=== PATIENT | female | born 1945 | race Caucasian/White ===

== ENCOUNTER 2016-12-02 21:28 | Emergency (ER) | payer MEDICARE, BC ==
[2016-12-02] MEDS ORDERED: traMADol 50 MG Tab ONE (21:40)
[2016-12-02 22:36] VITALS: BP 148/79
--- NOTE | 2016-12-03 09:33 | EDM.PDOC ---
ED HPI GENERAL MEDICAL PROBLEM - General Chief Complaint: General Stated Complaint: fall Time Seen by Provider: 12/02/16 21:45 - History of Present Illness INITIAL COMMENTS - FREE TEXT/NARRATIVE: This is a 71yo F who presents to the ER with an abrasion of the right knee and pain of the left groin and thigh. Patient states she fell and hit her right knee and felt pain of the left groin and thigh after she thinks she almost did the splits. Patient denies other complaints. 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 - Related Data Allergies Allergy/AdvReac Type Severity Reaction Status Date / Time amoxicillin Allergy Hives Verified 08/02/15 10:19 Home Meds: Home Meds Lisinopril [Lisinopril] 5 mg PO DAILY 08/02/15 [History] Omeprazole [Omeprazole] 20 mg PO DAILY 08/02/15 [History] Simvastatin [Simvastatin] 60 mg PO DAILY 08/02/15 [History] clonazePAM [Clonazepam] 0.5 mg PO TID PRN 08/02/15 [History] Aspirin 325 mg PO DAILY 12/02/16 [History] Budesonide/Formoterol [Symbicort 160-4.5 MCG] 1 puff INH BID 12/02/16 [History] Past Medical History HEENT History: Reports: Cataract Cardiovascular History: Reports: High Cholesterol, Hypertension Respiratory History: Reports: Bronchitis, Recurrent Musculoskeletal History: Reports: Other (See Below) Other Musculoskeletal History: rediculpathy Neurological History: Reports: Concussion Psychiatric History: Reports: Anxiety, Depression Endocrine/Metabolic History: Reports: Obesity/BMI 30+ Dermatologic History: Reports: Other (See Below) Other Dermatologic History: Skin rash to chest area - Infectious Disease History Infectious Disease History: Reports: Chicken Pox, Measles, Rubella, Shingles - Past Surgical History HEENT Surgical History: Reports: Radiocarotid Ectomy GI Surgical History: Reports: Appendectomy Social & Family History - Tobacco Use Smoking Status *Q: Current Every Day Smoker Years of Tobacco use: 30 Packs/Tins Daily: 1 Second Hand Smoke Exposure: No ED ROS GENERAL - Review of Systems Review Of Systems: ROS reveals no pertinent complaints other than HPI. ED EXAM, GENERAL - Physical Exam Exam: See Below Exam Limited By: No Limitations General Appearance: Alert, WD/WN, Mild Distress Eye Exam: Bilateral Eye: EOMI, PERRL Ears: Normal External Exam Nose: Normal Inspection Throat/Mouth: Normal Inspection Head: Atraumatic, Normocephalic Neck: Normal Inspection Respiratory/Chest: No Respiratory Distress Cardiovascular: Normal Peripheral Pulses GI/Abdominal: Normal Bowel Sounds Extremities: Other (right knee anterior bruising and abrasion; left inner thigh and posterior thigh tenderness on movement) Course - Vital Signs Last Recorded V/S: Last Vital Signs Temp 36.9 C 12/02/16 21:35 Pulse 107 H 12/02/16 21:35 Resp 12 12/02/16 21:35 BP 148/79 H 12/02/16 21:35 Pulse Ox 98 12/02/16 21:35 - Orders/Labs/Meds Meds: Medications Discontinued Medications Generic Name Dose Route Start Last Admin Trade Name Freq PRN Reason Stop Dose Admin Tramadol HCl 500 mg 12/02/16 21:40 Ultram .ROUTE 12/02/16 21:41 .STK-MED ONE Departure - Departure Time of Disposition: 22:15 Disposition: Home, Self-Care 01 Clinical Impression: Strain of groin, Quadriceps muscle strain - Discharge Information Instructions: Fall Prevention in the Home, [id number], Tramadol tablets, Muscle Strain Forms: ED Department Discharge Additional Instructions: Take Ibproufen 800mg (4 tabs) every 8 hours as needed for pain. You can alternate with tylenol 2 tabs - 650 mg (2 tabs) every 4 hours. Take tramadol 50 mg (1 tablet) at night or when needed for pain. - Problem List & Annotations (1) Strain of left inguinal muscle SNOMED Code(s): 79573047, 280600938 Code(s): S39.013A - STRAIN OF MUSCLE, FASCIA AND TENDON OF PELVIS, INIT ENCNTR Status: Acute (2) Quadriceps muscle strain SNOMED Code(s): 416396318 Code(s): S76.119A - STRAIN OF UNSP QUADRICEPS MUSCLE, FASCIA AND TENDON, INIT Status: Acute - Problem List Review Problem List Initiated/Reviewed/Updated: Yes - Assessment/Plan Plan: Counseled on supportive care and conservative care and f/u with PCP if symptoms persist or worsen. Discussed close monitoring and f/u. Patient agrees with plan and f/u.
== END 2016-12-02 22:05 | disposition home or self-care (01) ==
LOC: LB.ED 21:28
DX: S76.112A Strain of left quadriceps muscle, fascia and tendon, initial encounter (principal); S39.011A Strain of muscle, fascia and tendon of abdomen, initial encounter; S80.01XA Contusion of right knee, initial encounter; E78.00 Pure hypercholesterolemia, unspecified; I10 Essential (primary) hypertension; F41.9 Anxiety disorder, unspecified; F32.9 Major depressive disorder, single episode, unspecified; E66.9 Obesity, unspecified; F17.210 Nicotine dependence, cigarettes, uncomplicated; Z90.49 Acquired absence of other specified parts of digestive tract; Z88.1 Allergy status to other antibiotic agents; Z79.899 Other long term (current) drug therapy; Z79.82 Long term (current) use of aspirin; W19.XXXA Unspecified fall, initial encounter
CPT/HCPCS: 99283; A9270

== ENCOUNTER 2018-07-06 10:40 | Observation (INO) | payer MEDICARE ==
--- NOTE | 2018-07-06 11:21 | EDM.PDOC ---
ED HPI GENERAL MEDICAL PROBLEM - General Stated Complaint: SOB Time Seen by Provider: 07/06/18 10:45 Source of Information: Reports: Patient, EMS History Limitations: Reports: No Limitations - History of Present Illness INITIAL COMMENTS - FREE TEXT/NARRATIVE: According to patient she claims she claims she just came back from [place] few days ago. For past 3 days has been having low grade fever and shortness of breath with exertion. Today she woke up and felt like she was not getting enough oxygen and soon felt shortness of breath.Hence called ambulance. No chest pain or chest tightness. Pt claims she has been coughing and getting sputum. Sputum is clear. No wheezing. No hemoptysis. Duration: Day(s): (3) Location: Reports: Chest Quality: Reports: Other (cough) Severity: Moderate Associated Symptoms: Reports: Cough, Fever/Chills, Shortness of Breath. Denies : Confusion, Chest Pain, Diaphoresis, Headaches, Loss of Appetite, Nausea/ Vomiting, Rash, Seizure, Syncope, Weakness - Related Data Allergies Allergy/AdvReac Type Severity Reaction Status Date / Time amoxicillin Allergy Hives Verified 08/02/15 10:19 Home Meds: Home Meds Lisinopril 5 mg PO DAILY 08/02/15 [History] Omeprazole 20 mg PO DAILY 08/02/15 [History] Simvastatin 60 mg PO DAILY 08/02/15 [History] clonazePAM [Clonazepam] 0.5 mg PO TID PRN 08/02/15 [History] Aspirin 325 mg PO DAILY 12/02/16 [History] Budesonide/Formoterol [Symbicort 160-4.5 MCG] 1 puff INH BID 12/02/16 [History] Past Medical History HEENT History: Reports: Cataract Cardiovascular History: Reports: High Cholesterol, Hypertension Respiratory History: Reports: Bronchitis, Recurrent Musculoskeletal History: Reports: Other (See Below) Other Musculoskeletal History: rediculpathy Neurological History: Reports: Concussion Psychiatric History: Reports: Anxiety, Depression Endocrine/Metabolic History: Reports: Obesity/BMI 30+ Dermatologic History: Reports: Other (See Below) Other Dermatologic History: Skin rash to chest area - Infectious Disease History Infectious Disease History: Reports: Chicken Pox, Measles, Rubella, Shingles - Past Surgical History HEENT Surgical History: Reports: Radiocarotid Ectomy GI Surgical History: Reports: Appendectomy ED ROS GENERAL - Review of Systems Review Of Systems: See Below Constitutional: Reports: Fever, Chills HEENT: Denies: Rhinitis, Throat Pain, Throat Swelling Respiratory: Reports: Shortness of Breath, Cough, Sputum. Denies: Wheezing, Pleuritic Chest Pain Cardiovascular: Denies: Chest Pain, Lightheadedness GI/Abdominal: Denies: Abdominal Pain, Nausea, Vomiting : Denies: Dysuria, Frequency Musculoskeletal: Denies: Joint Pain, Joint Swelling Skin: Denies: Bruising, Pruritis, Rash Neurological: Reports: No Symptoms Psychiatric: Reports: Anxiety ED EXAM, GENERAL - Physical Exam Exam: See Below Exam Limited By: No Limitations General Appearance: Alert, WD/WN, No Apparent Distress, Other (Temp of 100.4F) Eye Exam: Bilateral Eye: EOMI, PERRL Ears: Normal External Exam, Normal Canal, Hearing Grossly Normal, Normal TMs Ear Exam: Bilateral Ear: Auricle Normal, Canal Normal, TM normal Nose: Normal Inspection, Normal Mucosa, No Blood Throat/Mouth: Normal Inspection, Normal Lips, Normal Teeth, Normal Gums, Normal Oropharynx, Normal Voice, No Airway Compromise Head: Atraumatic, Normocephalic Neck: Normal Inspection, Supple, Non-Tender, Full Range of Motion Respiratory/Chest: No Respiratory Distress, Lungs Clear, No Accessory Muscle Use , Chest Non-Tender, Decreased Breath Sounds (right base), Crackles (right base expiratory crackles heard) Cardiovascular: Normal Peripheral Pulses, Regular Rate, Rhythm, No Edema, No Gallop, No JVD, No Murmur, No Rub Course - Vital Signs Text/Narrative:: Pt was on NC O2 and has been maintaining her SPO2 above 94%. Pt does not appear in any acute respiratory distress. Breathing around 15-18 breaths. Anxious. On clinical exam there is good air entry anteriorly but decreased in the base. There are few crackles heard in the right lower lobe. Pt has been on Azithromycin, which was started yesterday in the clinic with the diagnosis of Asthma exacerbation. Her white count today is 7.9 with 74% neutrophils. Her Chest X-ray does show infiltrate in the right lower lobe. Her Influenza test is positive for influenza A. Pt's SPO2 on 3 liters of Oxygen is around 93-94%. I did slowly tartrate oxygen down to zero liters and patient's SPO2 did fall into 87-88%. Pt is not able to maintains her O2 Sats on room air. Hence I did discuss with patient that she has influenza with possible right lower lobe pneumonia, considering the crackles heard in right base. Chest Xray is negative per radiology. Will admit patient to hospital for observation as she is hypoxic and needs oxygen to maintain her SPO2. Will have her on Duonebs every 6 hrs as needed. Will have her on O2 to maintain SPO2 above 92 %. Incentive spirometer to expands lungs.Start her on Tamiflu. - Orders/Labs/Meds Orders: Active Orders 24 hr Category Date Time Status Chest 2V [CR] Stat Exams 07/06/18 11:08 Taken INFLUENZA A+B AG SCREEN [RM] Stat Lab 07/06/18 11:15 Received Labs: Laboratory Tests 07/06/18 Range/Units 11:15 WBC 7.9 (4.0-11.0) K/uL RBC 4.49 (3.80-5.80) M/uL Hgb 13.4 (11.5-16.5) g/dL Hct 40.4 (37.0-47.0) % MCV 90 (76-96) fL MCH 29.8 (27.0-32.0) pg MCHC 33.2 (31.0-35.0) g/dL RDW 13.3 (11.0-16.0) % Plt Count 190 D (150-500) K/uL MPV 9.9 (6.0-10.0) fL Neut % (Auto) 73.4 H (45.0-70.0) % Lymph % (Auto) 13.4 L (20.0-40.0) % [place] % (Auto) 10.9 H (3.0-10.0) % Eos % (Auto) 1.4 (1.0-5.0) % Baso % (Auto) 0.9 H (0.0-0.5) % Neut # (Auto) 5.77 (2.00-7.50) K/uL Lymph # (Auto) 1.05 L (1.50-4.00) K/uL [place] # (Auto) 0.86 H (0.20-0.80) K/uL Eos # (Auto) 0.11 (0.04-0.40) K/uL Baso # (Auto) 0.07 (0.02-0.10) K/uL Departure - Departure Time of Disposition: 12:00 Disposition: Refer to Observation Condition: Fair Clinical Impression: Influenza A, Right lower lobe pneumonia, Hypoxia - Discharge Information *PRESCRIPTION DRUG MONITORING PROGRAM REVIEWED*: Not Applicable *COPY OF PRESCRIPTION DRUG MONITORING REPORT IN PATIENT BOBO: Not Applicable - Problem List & Annotations (1) Hypoxia SNOMED Code(s): 369558521 Code(s): R09.02 - HYPOXEMIA Status: Acute Current Visit: Yes (2) Influenza A SNOMED Code(s): 268089201 Code(s): J10.1 - FLU DUE TO OTH IDENT INFLUENZA VIRUS W OTH RESP MANIFEST Status: Acute Current Visit: Yes (3) Right lower lobe pneumonia SNOMED Code(s): 604086098 Code(s): J18.1 - LOBAR PNEUMONIA, UNSPECIFIED ORGANISM Status: Acute Current Visit: Yes - Problem List Review Problem List Initiated/Reviewed/Updated: Yes - My Orders Last 24 Hours: My Active Orders 07/06/18 11:08 Chest 2V [CR] Stat 07/06/18 11:15 INFLUENZA A+B AG SCREEN [RM] Stat - Assessment/Plan Admission H&P: Please use this note as an admission H&P Last 24 Hours: My Active Orders 07/06/18 11:08 Chest 2V [CR] Stat 07/06/18 11:15 INFLUENZA A+B AG SCREEN [RM] Stat Assessment:: Hypoxia Influenza A Right LL pneumonia Plan: Pt was on NC O2 and has been maintaining her SPO2 above 94%. Pt does not appear in any acute respiratory distress. Breathing around 15-18 breaths. Anxious. On clinical exam there is good air entry anteriorly but decreased in the base. There are few crackles heard in the right lower lobe. Pt has been on Azithromycin, which was started yesterday in the clinic with the diagnosis of Asthma exacerbation. Her white count today is 7.9 with 74% neutrophils. Her Chest X-ray does show infiltrate in the right lower lobe. Her Influenza test is positive for influenza A. Pt's SPO2 on 3 liters of Oxygen is around 93-94%. I did slowly tartrate oxygen down to zero liters and patient's SPO2 did fall into 87-88%. Pt is not able to maintains her O2 Sats on room air. Hence I did discuss with patient that she has influenza with possible right lower lobe pneumonia, considering the crackles heard in right base. Chest Xray is negative per radiology. Will admit patient to hospital for observation as she is hypoxic and needs oxygen to maintain her SPO2. Will have her on Duonebs every 6 hrs as needed. Will have her on O2 to maintain SPO2 above 92 %. Incentive spirometer to expands lungs.Start her on Tamiflu.
[2018-07-06] MEDS ORDERED: Sodium Chloride 0.9% 10 ML Syringe FLUSH PRN (12:01)
[2018-07-06] MEDS ORDERED: Acetaminophen 325 MG Tab PO PRN (12:05)
[2018-07-06] MEDS ORDERED: Albuterol/Ipratropium 3.0-0.5 MG/3 ML Neb Soln NEB PRN (12:06)
--- NOTE | 2018-07-06 12:08 | CR ---
DATE OF EXAM: 07/06/2018 CLINICAL DATA: FEVER WITH COUGH PA and lateral chest: Comparison made to prior exam dated 07/15/2017. The heart size is normal. The lungs are mildly hyperexpanded. There is a nodular density in the right midlung on the frontal view. It is not present on the prior exam. I do not see it on the lateral view. It may be confluence of densities. I cannot exclude a small pulmonary parenchymal nodule. Chest CT is recommended. The lungs are otherwise clear. No pneumothorax. No pleural effusions. No areas of consolidation. 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 There is anterior wedging of a lower thoracic vertebra, chronic. Impression: Nodular density right midlung. See above. MTDD
[2018-07-06] MEDS ORDERED: Ibuprofen 600 MG Tab PO ONE (13:30)
[2018-07-06] MEDS: BUDESONIDE INH SCH ×2 (14:05→19:43)
[2018-07-06] MEDS: FORMOTEROL INH SCH ×2 (14:05→19:43)
[2018-07-06] MEDS: Omeprazole 20 MG Cap.CR PO SCH (14:07)
[2018-07-06] MEDS: Simvastatin 20 MG Tab PO SCH (14:09)
[2018-07-06] MEDS: Azithromycin 250 MG Tab PO SCH (14:10)
[2018-07-06] MEDS ORDERED: Aspirin 325 MG Tab.EC ONE (15:02)
[2018-07-06] MEDS: Non-Formulary Medication 1 Each (Aspirin [Aspirin] 325 MG) PO SCH (15:03)
[2018-07-06] MEDS: Oseltamivir 75 MG Cap PO SCH ×2 (15:03→19:41)
[2018-07-06] MEDS: ClonazePAM 0.5 MG Tab PO SCH ×2 (15:13→19:42)
[2018-07-06] MEDS: Lisinopril 5 MG Tab PO SCH (15:30)
[2018-07-06] MEDS ORDERED: Nicotine 7 MG/24 Hr Patch TRDERM PRN (16:56)
[2018-07-06] MEDS: Codeine/guaiFENesin 100-10 MG/5 ML Syrup 5 ML Cup ONE ×2 (19:17→19:41)
[2018-07-07] MEDS: FORMOTEROL INH SCH ×3 (01:28→20:22)
[2018-07-07] MEDS: BUDESONIDE INH SCH ×3 (01:28→20:22)
[2018-07-07] MEDS: Non-Formulary Medication 1 Each (Aspirin [Aspirin] 325 MG) PO SCH (07:51)
[2018-07-07] MEDS: Omeprazole 20 MG Cap.CR PO SCH (07:52)
[2018-07-07] MEDS: Lisinopril 5 MG Tab PO SCH (07:52)
[2018-07-07] MEDS: Azithromycin 250 MG Tab PO SCH (07:53)
[2018-07-07] MEDS: Oseltamivir 75 MG Cap PO SCH ×2 (07:54→20:22)
[2018-07-07] MEDS: ClonazePAM 0.5 MG Tab PO SCH ×3 (07:54→20:22)
[2018-07-07] MEDS: Simvastatin 20 MG Tab PO SCH (11:25)
[2018-07-07] MEDS ORDERED: Ibuprofen 600 MG Tab PO PRN (12:15)
[2018-07-07] MEDS ORDERED: Ibuprofen 200 MG Tab PO PRN (12:57)
[2018-07-07] MEDS: guaiFENesin 600 MG Tab.ER PO SCH (17:27)
[2018-07-07] MEDS ORDERED: Simvastatin 20 MG Tab PO SCH (20:00)
[2018-07-08] MEDS: Oseltamivir 75 MG Cap PO SCH ×2 (08:41→09:34)
[2018-07-08] MEDS: ClonazePAM 0.5 MG Tab PO SCH ×2 (08:41→09:34)
[2018-07-08] MEDS: Azithromycin 250 MG Tab PO SCH ×2 (08:41→09:34)
[2018-07-08] MEDS: Omeprazole 20 MG Cap.CR PO SCH ×2 (08:42→09:34)
[2018-07-08] MEDS: FORMOTEROL INH SCH ×2 (08:42→09:34)
[2018-07-08] MEDS: BUDESONIDE INH SCH ×2 (08:42→09:34)
[2018-07-08] MEDS: Lisinopril 5 MG Tab PO SCH ×2 (08:42→09:34)
[2018-07-08] MEDS: Non-Formulary Medication 1 Each (Aspirin [Aspirin] 325 MG) PO SCH ×2 (08:46→09:34)
[2018-07-08] MEDS ORDERED: Aspirin 325 MG Tab.EC ONE (08:46)
[2018-07-08] MEDS: guaiFENesin 600 MG Tab.ER PO SCH ×2 (08:47→09:34)
--- NOTE | 2018-07-08 09:11 | PCM.PN ---
- General Info Date of Service: 07/07/18 Subjective Update: Pt has had uneventful night. Has had low grade fever. Pt is still on 2 litres of oxygen to maintain her SPO2s been coughing on and off getting clear sputum. No chest pain. No shortness of breath or wheezing. HAs been feeding well. Ambulating. Functional Status: Reports: Pain Controlled, Tolerating Diet, Ambulating, Urinating, Incentive Spirometry - Review of Systems General: Reports: Fever, Weakness HEENT: Reports: Rhinitis. Denies: Headaches, Sore Throat Pulmonary: Reports: Cough, Sputum. Denies: Shortness of Breath, Hemoptysis, Wheezing Cardiovascular: Denies: Chest Pain, Lightheadedness Gastrointestinal: Denies: Abdominal Pain, Nausea, Vomiting Genitourinary: Denies: Dysuria, Frequency Musculoskeletal: Denies: Joint Pain, Joint Swelling Skin: Denies: Bruising, Pruritis, Rash Neurological: Denies: Confusion, Dizziness - Patient Data Vitals - Most Recent: Last Vital Signs Temp 99.1 F 07/07/18 20:00 Pulse 77 07/07/18 20:00 Resp 20 07/07/18 20:00 BP 106/50 L 07/07/18 20:00 Pulse Ox 97 07/07/18 20:00 Weight - Most Recent: 90.265 kg I&O - Last 24 Hours: Intake & Output 07/07/18 07/08/18 07/08/18 22:59 06:59 14:59 Intake Total 1680 Output Total 900 Balance 780 Mc Results Last 24 Hours: Microbiology 07/06/18 12:21 Aerobic Blood Culture - Preliminary Blood - Venous NO GROWTH AFTER 1 DAY Anaerobic Blood Culture - Preliminary NO GROWTH AFTER 1 DAY Med Orders - Current: Current Medications Acetaminophen (Tylenol) 650 mg PO Q6H PRN PRN Reason: Fever Last Admin: 07/07/18 01:21 Dose: 650 mg Albuterol/Ipratropium (Duoneb 3.0-0.5 Mg/3 Ml) 3 ml NEB Q6H PRN PRN Reason: Wheezing Last Admin: 07/07/18 11:25 Dose: 3 ml Azithromycin (Zithromax) 250 mg PO DAILY [facility] Last Admin: 07/07/18 07:53 Dose: 250 mg Clonazepam (Klonopin) 0.5 mg PO TID [facility] Last Admin: 07/07/18 20:22 Dose: 0.5 mg Guaifenesin (Mucinex) 1,200 mg PO BID [facility] Last Admin: 07/07/18 17:27 Dose: 1,200 mg Ibuprofen (Motrin) 600 mg PO Q8H PRN PRN Reason: MILD PAIN Last Admin: 07/08/18 07:03 Dose: 600 mg Lisinopril (Prinivil) 5 mg PO DAILY [facility] Last Admin: 07/07/18 07:52 Dose: 5 mg Nicotine (Habitrol) 7 mg TRDERM DAILY PRN PRN Reason: Agitation Non-Formulary Medication (Aspirin [Aspirin]) 325 mg PO DAILY [facility] Last Admin: 07/07/18 07:51 Dose: 325 mg Non-Formulary Medication (Budesonide/Formoterol [Symbicort 160-4.5 Mcg]) 1 puff INH BID [facility] Last Admin: 07/07/18 20:22 Dose: 1 puff Omeprazole (Omeprazole) 20 mg PO DAILY [facility] Last Admin: 07/07/18 07:52 Dose: 20 mg Oseltamivir Phosphate (Tamiflu) 75 mg PO BID [facility] Last Admin: 07/07/18 20:22 Dose: 75 mg Simvastatin (Zocor) 60 mg PO BEDTIME [facility] Last Admin: 07/07/18 20:22 Dose: 60 mg Sodium Chloride (Saline Flush) 10 ml FLUSH ASDIRECTED PRN PRN Reason: Keep Vein Open Discontinued Medications Aspirin (Ecotrin) Confirm Administered Dose 325 mg .ROUTE .STK-MED ONE Stop: 07/06/18 15:03 Last Admin: 07/06/18 15:18 Dose: Not Given Aspirin (Ecotrin) Confirm Administered Dose 325 mg .ROUTE .STK-MED ONE Stop: 07/08/18 08:47 Guaifenesin/Codeine Phosphate (Robitussin Ac) Confirm Administered Dose 5 ml .ROUTE .STK-MED ONE Stop: 07/06/18 19:18 Last Admin: 07/06/18 19:41 Dose: 5 ml Ibuprofen (Motrin) 600 mg PO ONETIME ONE Stop: 07/06/18 13:31 Last Admin: 07/06/18 13:23 Dose: 600 mg Simvastatin (Zocor) 60 mg PO DAILY [facility] Last Admin: 07/07/18 11:25 Dose: Not Given - Exam Quality Assessment: Supplemental Oxygen General: Alert, Oriented, Cooperative HEENT: Pupils Equal, Pupils Reactive, EOMI, Mucous Membr. Moist/[place] Neck: Supple Lungs: Clear to Auscultation, Normal Respiratory Effort Cardiovascular: Regular Rate, Regular Rhythm GI/Abdominal Exam: Normal Bowel Sounds, Soft, Non-Tender, No Organomegaly, No Distention, No Abnormal Bruit, No Mass, Pelvis Stable Extremities: Normal Inspection, Normal Range of Motion, Non-Tender, No Pedal Edema, Normal Capillary Refill Skin: Warm, Intact - Problem List & Annotations (1) Hypoxia SNOMED Code(s): 033431825 Code(s): R09.02 - HYPOXEMIA Status: Acute Current Visit: Yes (2) Influenza A SNOMED Code(s): 949328374 Code(s): J10.1 - FLU DUE TO OTH IDENT INFLUENZA VIRUS W OTH RESP MANIFEST Status: Acute Current Visit: Yes (3) Right lower lobe pneumonia SNOMED Code(s): 837850105 Code(s): J18.1 - LOBAR PNEUMONIA, UNSPECIFIED ORGANISM Status: Acute Current Visit: Yes - Problem List Review Problem List Initiated/Reviewed/Updated: Yes - My Orders Last 24 Hours: My Active Orders 07/07/18 12:57 Ibuprofen [Motrin] 600 mg PO Q8H PRN 07/07/18 17:15 guaiFENesin [Mucinex] 1,200 mg PO BID 07/07/18 20:00 Simvastatin [Zocor] 60 mg PO BEDTIME - Assessment Assessment:: 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 She is on 2 liters of oxygen. Has been doing incentive spirometer upto 2000cc. Still has cough with minimal productive clear sputum. Tolerating diet well. Will encourage patient to ambulates. Continue deep breathing exercises. Will titrate oxygen downwards to keep the SPO2 over 92%. Will see if she can get off oxygen. Some of the hypoxia might be related to her mild COPD form smoking too. Will continue tamiflu and home meds.
--- NOTE | 2018-07-08 09:21 | PCM.DCSUM1 ---
Discharge Summary - Hospital Course Free Text/Narrative:: Pt presented to the emergency room on 07/06/18 with shortness of breath and fever. her SPO2 was 87% on room air. Her workup in the emergency room showed positive influenza-A and also crackles in the right base, consistent with early right LL pneumonia with hypoxia. Did try to titrate her oxygen in the emergency room, and her SPO2 would drop into 80s, hence patient was admitted to hospital for observation, to treat her Influenza and monitor her hypoxia. Pt has smoked since she was in her teens and just stopped smoking yesterday. Pt was started on tamiflu 75mg twice daily, also she was on ZPAk, from the clinic before, which was continued.Pt was placed on respiratory isolation. Day1, patient was feeling fine. Had low grade fever. tolerating diet well. She was still on 2litres of oxygen and her SPO2 was running around 93-95 %, had mild cough with clear sputum. No wheezing or shortness of breath. Pt was able to expand her lung on incentive spirometry up to 2000cc.Plan was to stat titrating the oxygen down to see if she can maintain PSo2 above 97%. Day2, patient has had uneventful night. Has been afebrile. Tolerating diet well. cough has improved. Pt's SPO2 is 97% on room air now. No complaints from patient. Clinical exam is normal and vitals are stable. Pt reassured. Plan is to discharge home today. Continue tamiflu for another 3 days. and azithromyicn for one more day. Deep breathing exercises with incentive spirometer every 3-4 hrs. Cough and clear up the airway. Mucinex as needed for cough. continue home meds. rest and hydration. Pt to followup in clinic in 7-10 days. Brief History: Presented to emergency room with shortness of breath on 07/06/18, pt had influenza A with hypoxia. Kindly see H&P for details. Diagnosis: Stroke: No - Discharge Data Discharge Date: 07/08/18 Discharge Disposition: Home, Self-Care 01 Condition: Good - Discharge Diagnosis/Problem(s) (1) Hypoxia SNOMED Code(s): 585025536 ICD Code: R09.02 - HYPOXEMIA Status: Acute Current Visit: Yes (2) Influenza A SNOMED Code(s): 261151084 ICD Code: J10.1 - FLU DUE TO OTH IDENT INFLUENZA VIRUS W OTH RESP MANIFEST Status: Acute Current Visit: Yes (3) Right lower lobe pneumonia SNOMED Code(s): 255456872 ICD Code: J18.1 - LOBAR PNEUMONIA, UNSPECIFIED ORGANISM Status: Acute Current Visit: Yes - Patient Instructions Diet: Usual Diet as Tolerated Fluid Restriction: 1500 mL Activity: As Tolerated Driving: May Drive Today Showering/Bathing: May Shower - Discharge Plan *PRESCRIPTION DRUG MONITORING PROGRAM REVIEWED*: Not Applicable *COPY OF PRESCRIPTION DRUG MONITORING REPORT IN PATIENT BOBO: Not Applicable Home Medications: Home Meds Lisinopril 5 mg PO DAILY 08/02/15 [History] Omeprazole 20 mg PO DAILY 08/02/15 [History] Simvastatin 60 mg PO DAILY 08/02/15 [History] clonazePAM [Clonazepam] 0.5 mg PO TID PRN 08/02/15 [History] Aspirin 325 mg PO DAILY 12/02/16 [History] Budesonide/Formoterol [Symbicort 160-4.5 MCG] 1 puff INH BID 12/02/16 [History] Acetaminophen [Tylenol] 650 mg PO Q6H PRN tablet 07/08/18 [Rx] Azithromycin [Zithromax] 250 mg PO DAILY tablet 07/08/18 [Rx] Oseltamivir [Tamiflu] 75 mg PO BID cap 07/08/18 [Rx] guaiFENesin [Mucinex] 1,200 mg PO BID tab.er 07/08/18 [Rx] Patient Handouts: Influenza, Adult, Oseltamivir capsules, Community-Acquired Pneumonia, Adult, [id number] Referrals: PCP,Unknown [Ordering Only Provider] - - Discharge Summary/Plan Comment DC Time >30 min.: Yes Discharge Summary/Plan Comment: Plan is to discharge home today. Continue tamiflu for another 3 days. and azithromyicn for one more day. Deep breathing exercises with incentive spirometer every 3-4 hrs. Cough and clear up the airway. Mucinex as needed for cough. continue home meds. rest and hydration. Pt's health care law specialist (Joan boston) was sent a script for Tamiflu 75mg daily for 10 days for influenza prophylaxis Pt to followup in clinic in 7-10 days. - General Info Date of Service: 07/08/18 Functional Status: Reports: Pain Controlled, Tolerating Diet, Ambulating, Urinating, Incentive Spirometry - Review of Systems General: Denies: Fever, Weakness HEENT: Denies: Headaches, Sinus Congestion, Sore Throat, Rhinitis Pulmonary: Denies: Shortness of Breath, Pleuritic Chest Pain, Sputum, Hemoptysis Cardiovascular: Denies: Chest Pain, Lightheadedness Gastrointestinal: Denies: Abdominal Pain, Nausea, Vomiting Genitourinary: Denies: Frequency Musculoskeletal: Denies: Joint Pain, Joint Swelling Skin: Denies: Bruising, Pruritis, Rash Neurological: Denies: Confusion, Dizziness, Headache - Patient Data Vitals - Most Recent: Last Vital Signs Temp 99.1 F 07/07/18 20:00 Pulse 77 07/07/18 20:00 Resp 20 07/07/18 20:00 BP 106/50 L 07/07/18 20:00 Pulse Ox 97 07/07/18 20:00 Weight - Most Recent: 90.265 kg I&O - Last 24 hours: Intake & Output 07/07/18 07/08/18 07/08/18 22:59 06:59 14:59 Intake Total 1680 Output Total 900 Balance 780 MARY Results - Last 24 hrs: Microbiology 07/06/18 12:21 Aerobic Blood Culture - Preliminary Blood - Venous NO GROWTH AFTER 1 DAY Anaerobic Blood Culture - Preliminary NO GROWTH AFTER 1 DAY Med Orders - Current: Current Medications Acetaminophen (Tylenol) 650 mg PO Q6H PRN PRN Reason: Fever Last Admin: 07/07/18 01:21 Dose: 650 mg Albuterol/Ipratropium (Duoneb 3.0-0.5 Mg/3 Ml) 3 ml NEB Q6H PRN PRN Reason: Wheezing Last Admin: 07/07/18 11:25 Dose: 3 ml Azithromycin (Zithromax) 250 mg PO DAILY [facility] Last Admin: 07/07/18 07:53 Dose: 250 mg Clonazepam (Klonopin) 0.5 mg PO TID [facility] Last Admin: 07/07/18 20:22 Dose: 0.5 mg Guaifenesin (Mucinex) 1,200 mg PO BID [facility] Last Admin: 07/07/18 17:27 Dose: 1,200 mg Ibuprofen (Motrin) 600 mg PO Q8H PRN PRN Reason: MILD PAIN Last Admin: 07/08/18 07:03 Dose: 600 mg Lisinopril (Prinivil) 5 mg PO DAILY [facility] Last Admin: 07/07/18 07:52 Dose: 5 mg Nicotine (Habitrol) 7 mg TRDERM DAILY PRN PRN Reason: Agitation Non-Formulary Medication (Aspirin [Aspirin]) 325 mg PO DAILY [facility] Last Admin: 07/07/18 07:51 Dose: 325 mg Non-Formulary Medication (Budesonide/Formoterol [Symbicort 160-4.5 Mcg]) 1 puff INH BID [facility] Last Admin: 07/07/18 20:22 Dose: 1 puff Omeprazole (Omeprazole) 20 mg PO DAILY [facility] Last Admin: 07/07/18 07:52 Dose: 20 mg Oseltamivir Phosphate (Tamiflu) 75 mg PO BID [facility] Last Admin: 07/07/18 20:22 Dose: 75 mg Simvastatin (Zocor) 60 mg PO BEDTIME [facility] Last Admin: 07/07/18 20:22 Dose: 60 mg Sodium Chloride (Saline Flush) 10 ml FLUSH ASDIRECTED PRN PRN Reason: Keep Vein Open Discontinued Medications Aspirin (Ecotrin) Confirm Administered Dose 325 mg .ROUTE .STK-MED ONE Stop: 07/06/18 15:03 Last Admin: 07/06/18 15:18 Dose: Not Given Aspirin (Ecotrin) Confirm Administered Dose 325 mg .ROUTE .STK-MED ONE Stop: 07/08/18 08:47 Guaifenesin/Codeine Phosphate (Robitussin Ac) Confirm Administered Dose 5 ml .ROUTE .STK-MED ONE Stop: 07/06/18 19:18 Last Admin: 07/06/18 19:41 Dose: 5 ml Ibuprofen (Motrin) 600 mg PO ONETIME ONE Stop: 07/06/18 13:31 Last Admin: 07/06/18 13:23 Dose: 600 mg Simvastatin (Zocor) 60 mg PO DAILY [facility] Last Admin: 07/07/18 11:25 Dose: Not Given - Exam General: Reports: Alert, Oriented HEENT: Reports: Pupils Equal, Pupils Reactive, EOMI, Mucous Membr. Moist/[place] Neck: Reports: Supple Lungs: Reports: Clear to Auscultation, Normal Respiratory Effort Cardiovascular: Reports: Regular Rate, Regular Rhythm Extremities: Normal Inspection, Normal Range of Motion, Non-Tender, No Pedal Edema, Normal Capillary Refill Skin: Reports: Warm, Intact
[2018-07-08 09:34] VITALS: BP 129/67
== END 2018-07-08 11:25 | disposition home or self-care (01) ==
LOC: LB.ED 10:40 → LB.MS 11:57 → UNDOADMOB 11:57 → LB.MS 12:01
PROVIDERS: ADMIT Family Medicine; ATTEND Family Medicine
DX: J10.08 Influenza due to other identified influenza virus with other specified pneumonia (principal); J18.1 Lobar pneumonia, unspecified organism; R09.02 Hypoxemia; I10 Essential (primary) hypertension; E78.00 Pure hypercholesterolemia, unspecified; F41.9 Anxiety disorder, unspecified; F32.9 Major depressive disorder, single episode, unspecified; Z88.0 Allergy status to penicillin; Z79.82 Long term (current) use of aspirin; Z79.51 Long term (current) use of inhaled steroids; Z79.899 Other long term (current) drug therapy
CPT/HCPCS: 36415; 71046; 85025; 87040; 87804; A0425; A0429; A9270-GY; G0378; J7620-GY

== ENCOUNTER 2019-09-15 14:41 | Emergency (ER) | payer MEDICARE ==
[2019-09-15 15:13] VITALS: BP 158/79; PULSE 94
--- NOTE | 2019-09-15 15:32 | EDM.PDOC ---
ED HPI GENERAL MEDICAL PROBLEM - General Chief Complaint: Neuro Symptoms/Deficits Stated Complaint: SHAKING, ON PREDNISONE Time Seen by Provider: 09/15/19 15:20 Source of Information: Reports: Patient History Limitations: Reports: No Limitations - History of Present Illness INITIAL COMMENTS - FREE TEXT/NARRATIVE: This patient presents to the ED for evaluation of shaking. She states that she has had shaking of her body including arms and legs for the past 5 months. This is her primary concern although this does not seem to be new or unchanged today. She is also complaining of her skin itching and peeling; she has been on prednisone since August 24 for this but does not think this has helped. She denies chest pain, abdominal pain, nausea, vomiting or diarrhea. She denies fever, cough, or sore throat. Onset: Gradual Location: Reports: Generalized - Related Data Allergies Allergy/AdvReac Type Severity Reaction Status Date / Time amoxicillin Allergy Hives Verified 09/15/19 15:10 Home Meds: Home Meds Lisinopril 5 mg PO DAILY 08/02/15 [History] Omeprazole 20 mg PO DAILY 08/02/15 [History] Simvastatin 60 mg PO DAILY 08/02/15 [History] clonazePAM [Clonazepam] 0.5 mg PO TID PRN 08/02/15 [History] Aspirin 325 mg PO DAILY 12/02/16 [History] Budesonide/Formoterol [Symbicort 160-4.5 MCG] 1 puff INH BID 12/02/16 [History] Acetaminophen [Tylenol] 650 mg PO Q6H PRN tablet 07/08/18 [Rx] Azithromycin [Zithromax] 250 mg PO DAILY tablet 07/08/18 [Rx] Oseltamivir [Tamiflu] 75 mg PO BID cap 07/08/18 [Rx] guaiFENesin [Mucinex] 1,200 mg PO BID tab.er 07/08/18 [Rx] Past Medical History HEENT History: Reports: Cataract Cardiovascular History: Reports: High Cholesterol, Hypertension, Other (See Below) Other Cardiovascular History: chew an aspirin a day Respiratory History: Reports: Bronchitis, Recurrent, Pneumonia, Recurrent [employer] History: Reports: , Other (See Below) Other [employer] History: biopsy Musculoskeletal History: Reports: Other (See Below) Other Musculoskeletal History: rediculpathy Neurological History: Reports: Concussion Psychiatric History: Reports: Anxiety, Depression Endocrine/Metabolic History: Reports: Obesity/BMI 30+ Hematologic History: Reports: Blood Transfusion(s) Dermatologic History: Reports: Other (See Below) Other Dermatologic History: Skin rash to chest area - Infectious Disease History Infectious Disease History: Reports: Chicken Pox, Influenza, Measles, Rubella, Shingles - Past Surgical History HEENT Surgical History: Reports: Radial Keratotomy GI Surgical History: Reports: Appendectomy, Colonoscopy, Hernia, Inguinal Musculoskeletal Surgical History: Reports: Other (See Below) Other Musculoskeletal Surgeries/Procedures:: cortisone shots to shoulders Social & Family History - Tobacco Use Smoking Status *Q: Current Every Day Smoker Years of Tobacco use: 20 Packs/Tins Daily: 0.5 Used Tobacco, but Quit: No Second Hand Smoke Exposure: No - Caffeine Use Caffeine Use: Reports: Coffee Other Caffeine Use: 2cups/day - Alcohol Use Days Per Week of Alcohol Use: 2 Number of Drinks Per Day: 0 Total Drinks Per Week: 0 - Recreational Drug Use Recreational Drug Use: No ED ROS GENERAL - Review of Systems Review Of Systems: Comprehensive ROS is negative, except as noted in HPI. ED EXAM, NEURO - Physical Exam Exam: See Below Exam Limited By: No Limitations General Appearance: Alert, WD/WN, No Apparent Distress, Anxious Eye Exam: Bilateral Eye: PERRL Ears: Normal External Exam, Hearing Grossly Normal Nose: Normal Inspection, Normal Mucosa Throat/Mouth: Normal Inspection, Normal Oropharynx Head Exam: Atraumatic, Normocephalic Neck: Normal Inspection, Supple, Full Range of Motion Respiratory/Chest: No Respiratory Distress, Lungs Clear, Normal Breath Sounds Cardiovascular: Regular Rate, Rhythm Neurological: Alert, Normal Mood/Affect, Oriented x 3, Other (Few hand tremors noted on exam) Extremities: Normal Capillary Refill Psychiatric: Normal Affect Skin Exam: Warm, Dry, Intact, Other (pruritis) Course - Vital Signs Last Recorded V/S: Last Vital Signs Temp 36.6 C 09/15/19 15:10 Pulse 94 09/15/19 15:10 Resp 18 09/15/19 15:10 BP 158/79 H 09/15/19 15:10 Pulse Ox 97 09/15/19 15:10 - Orders/Labs/Meds Orders: Active Orders 24 hr Category Date Time Status EKG Documentation Completion [RC] ASDIRECTED Care 09/15/19 15:20 Active Labs: Laboratory Tests 09/15/19 09/15/19 Range/Units 15:30 15:30 WBC 16.3 H D (4.0-11.0) K/uL RBC 5.12 (3.80-5.80) M/uL Hgb 15.1 (11.5-16.5) g/dL Hct 45.9 (37.0-47.0) % MCV 90 (76-96) fL MCH 29.5 (27.0-32.0) pg MCHC 32.9 (31.0-35.0) g/dL RDW 13.7 (11.0-16.0) % Plt Count 343 (150-500) K/uL MPV 9.2 (6.0-10.0) fL Neut % (Auto) 88.3 H (45.0-70.0) % Lymph % (Auto) 10.1 L (20.0-40.0) % [place] % (Auto) 1.3 L (3.0-10.0) % Eos % (Auto) 0.1 L (1.0-5.0) % Baso % (Auto) 0.2 (0.0-0.5) % Neut # (Auto) 14.40 H (2.00-7.50) K/uL Lymph # (Auto) 1.64 (1.50-4.00) K/uL [place] # (Auto) 0.22 (0.20-0.80) K/uL Eos # (Auto) 0.02 L (0.04-0.40) K/uL Baso # (Auto) 0.03 (0.02-0.10) K/uL Sodium 142 (136-145) mmol/L Potassium 4.0 (3.5-5.1) mmol/L Chloride 103 (98-107) mmol/L Carbon Dioxide 31.4 (21.0-32.0) mmol/L Anion Gap 11.6 (5.0-15.0) mmol/L BUN 18 (8-26) mg/dL Creatinine 0.87 (0.55-1.02) mg/dL Est Cr Clr Drug Dosing 56.00 mL/min Estimated GFR (MDRD) > 60 (>60) MLS/MIN BUN/Creatinine Ratio 20.7 (6-25) Glucose 118 H D (74-100) mg/dL Calcium 9.8 (8.5-10.1) mg/dL - Re-Assessments/Exams Free Text/Narrative Re-Assessment/Exam: 09/15/19 19:08 This patient presents with concerns that she is shaking all over. History and physical findings did not specifically identify a specific etiology for her concerns. There was not abnormalities in her EKG and her labs were within normal limits with the exception of her WBC which was mildly elevated. This could be attributed to her rather considerable state of anxiety. She has been on a prolonged course of daily prednisone for a presumed allergy and this could continue to her feelings of shaking. On reexamination prior to discharge, her hands were steady and there was no evidence of shaking. She was instructed to follow up with Dr. Arriola on Wednesday, September 18 or to return to the ED sooner if there were other concerns. Departure - Departure Time of Disposition: 17:00 Disposition: Home, Self-Care 01 Condition: Good Clinical Impression: Occasional tremors - Discharge Information Instructions: Tremor Referrals: PCP,None [Primary Care Provider] - Forms: ED Department Discharge Care Plan Goals: Follow up in the clinic next Wednesday with Dr Arriola. Return to hospital or clinic sooner if needed or if symptoms don't improve. Sepsis Event Note - Evaluation Sepsis Screening Result: No Definite Risk - Focused Exam Vital Signs: Vital Signs Temp Pulse Resp BP Pulse Ox 09/15/19 15:10 36.6 C 94 18 158/79 H 97 Date Exam was Performed: 09/15/19 Time Exam was Performed: 19:07 - My Orders Last 24 Hours: My Active Orders 09/15/19 15:20 EKG Documentation Completion [RC] ASDIRECTED - Assessment/Plan Last 24 Hours: My Active Orders 09/15/19 15:20 EKG Documentation Completion [RC] ASDIRECTED
== END 2019-09-15 16:41 | disposition home or self-care (01) ==
LOC: LB.ED 14:41
DX: R25.1 Tremor, unspecified (principal); E78.00 Pure hypercholesterolemia, unspecified; I10 Essential (primary) hypertension; F41.9 Anxiety disorder, unspecified; F32.9 Major depressive disorder, single episode, unspecified; E66.9 Obesity, unspecified; F17.210 Nicotine dependence, cigarettes, uncomplicated; Z68.30 Body mass index [BMI] 30.0-30.9, adult; Z88.1 Allergy status to other antibiotic agents; Z79.899 Other long term (current) drug therapy; Z79.82 Long term (current) use of aspirin
CPT/HCPCS: 36415; 80048; 85025; 93005; 99283-25

== ENCOUNTER 2019-10-08 18:02 | Emergency (ER) | payer MEDICARE ==
--- NOTE | 2019-10-08 20:36 | ER ---
REASON FOR EMERGENCY ROOM VISIT: Nosebleed. HISTORY: This 74-year-old woman developed an episode of nosebleed coming primarily out of her right nostril after a rather strenuous sneezing episode this afternoon. She states that she bled quite a bit at home and coughed up several clots, the blood that ran down her posterior pharynx. She has only had 1 prior nosebleed and that was a couple of months ago, but it stops spontaneously. Other than that, she has never had problems with epistaxis before. The patient is not on any anticoagulants except for 1/2 of an aspirin per day. She has not had any trauma. She has not been picking at her nose and has not had any significant respiratory symptoms prior to this episode. PAST MEDICAL HISTORY: Significant for: 1. Cataracts. 2. Hypercholesterolemia. 3. Hypertension. 4. Recurrent bronchitis. 5. Radiculopathy. 6. History of anxiety and depression. 7. Obesity. 8. Appendectomy and inguinal herniorrhaphy. 9. Osteoarthritis. ALLERGIES: TO AMOXICILLIN. MEDICATIONS: Include: 1. Clonazepam. 2. Simvastatin. 3. Omeprazole. 4. Lisinopril. 5. Symbicort. 6. Aspirin. See EMR for doses. REVIEW OF SYSTEMS: Pertinent positives and negatives as listed in the HPI. PHYSICAL EXAMINATION: GENERAL: She has a lot of bloody Kleenex and some blood dried on her face. She is spitting up some clots, but she is not in any particular acute distress. VITAL SIGNS: She is afebrile. Heart rate is 123, blood pressure 150/71, respiratory rate is 20, O2 sats 97%. HEENT: She has quite a bit of bloody drainage from her right naris and a small amount from her left. She is spitting up some bloody sputum with some small clots. EMERGENCY ROOM COURSE: We used cotton Q-tips to swab out her anterior nares bilaterally to inspect these areas, but she was oozing from an area, it is somewhat posterior to the anterior nares. I did see a couple of areas on the right side that seemed to be raw and maybe oozing some, so I went ahead and cauterized these with silver nitrate, but that obviously was not the main source of the bleeding. She had a small amount of similar oozing in the anterior nares that I touched with a silver nitrate stick, but I doubt this was causing any significant bleeding. We went ahead and temporarily packed her anterior nasal cavity with saline moistened cotton and applied pressure for about 10 minutes. This was removed and I could get a better look inside. I could see just beyond on her anterior nasal cavity medially where she had some diffuse oozing. I could not pinpoint it, even though I swabbed with cotton swabs and tried to apply silver nitrate to this area. I therefore elected to go ahead with a Rhino Rocket and chose the longer one, which is 7.5 cm in length. I explained to the patient the rationale and the procedure required to insert this, and I told her that this would have to remain in place for a minimum of 24 hours, preferably closer to 48. She understood and agreed. I soaked the Rhino Rocket in sterile water for 30 seconds and then inserted in the right naris and directed it toward the posterior nasal cavity. It was then inflated with approximately 10 mL of air to the point where the indicator balloon remained fairly tense. I disconnected the inflated syringe and checked it again and it is felt to be the right amount of tension and remained inflated. I re- inspected the left nasal cavity and did not see any active bleeding sites. Altogether, she was in the emergency department for approximately 1-1/2 hours following the insertion of the Rhino Rocket and she did not have any evidence of continued bleeding. I re-inspected her left nasal cavity and there was no bleeding coming around that side. Her posterior pharynx was free of any evidence of clot or bleeding. She was uncomfortable because of the pressure in her nose, and I offered her a couple of tablets of tramadol to get her by overnight, but she thought that she can get by on Tylenol at home. We instructed her regarding the care of this and that she will have to keep the inflation port taped up to the side of her cheek, and I recommended that she sleep upright. To be on the safe side, we went ahead and checked a protime and an INR and that was 9.4/1.0, so that is normal. We are awaiting for a CBC at the time of this dictation. Assuming that is normal, she can go home. Her last CBC on 09/15/2019 did show some leukocytosis, but she had been on a steroid burst at that time. Her platelet counts were normal at that time. All questions were answered. We instructed her that she needs to have this removed, probably on Wednesday. She should call in on Wednesday or Wednesday and arrange an appointment to have this removed. She understands and all questions were answered. DIXON/MARIELLE /[id number]
[2019-10-09 01:25] VITALS: BP 153/86; PULSE 114
--- NOTE | 2019-10-09 08:13 | ER ---
ADDENDUM: IMPRESSION: Epistaxis, controlled. DIXON/MARIELLE /[id number] MTDD
== END 2019-10-08 20:00 | disposition home or self-care (01) ==
LOC: LB.ED 18:02
DX: R04.0 Epistaxis (principal); E78.00 Pure hypercholesterolemia, unspecified; I10 Essential (primary) hypertension; F41.9 Anxiety disorder, unspecified; E66.9 Obesity, unspecified; M19.90 Unspecified osteoarthritis, unspecified site; Z79.82 Long term (current) use of aspirin; Z79.899 Other long term (current) drug therapy
CPT/HCPCS: 30901; 30903; 36415; 85025; 85610; 99283; 99283-25

== ENCOUNTER 2020-09-16 10:05 | Emergency (ER) | payer MEDICARE ==
[2020-09-16 10:40] VITALS: BP 147/81; PULSE 94
--- NOTE | 2020-09-16 10:54 | EDM.PDOC ---
ED HPI GENERAL MEDICAL PROBLEM - General Chief Complaint: Skin Complaint Stated Complaint: FALL AT HOME LACERATIONS Time Seen by Provider: 09/16/20 10:25 Source of Information: Reports: Patient History Limitations: Reports: No Limitations - History of Present Illness INITIAL COMMENTS - FREE TEXT/NARRATIVE: patient presented to the ER after a fall. Reports wounds on her b/l upper extremities. She reports tripping over her luggage. No dizziness or chest pain. NO loc. h/o b/l shoulder arthritis. not on blood thinners Onset: Sudden Duration: Minutes: (30) Location: Reports: Upper Extremity, Left, Upper Extremity, Right Improves with: Reports: None - Related Data Allergies Allergy/AdvReac Type Severity Reaction Status Date / Time amoxicillin Allergy Hives Verified 09/16/20 10:40 Home Meds: Home Meds Lisinopril 5 mg PO DAILY 08/02/15 [History] Omeprazole 20 mg PO DAILY 08/02/15 [History] Simvastatin 60 mg PO DAILY 08/02/15 [History] clonazePAM [Clonazepam] 0.5 mg PO TID PRN 08/02/15 [History] Aspirin 325 mg PO DAILY 12/02/16 [History] Budesonide/Formoterol [Symbicort 160-4.5 MCG] 1 puff INH BID 12/02/16 [History] Past Medical History HEENT History: Reports: Cataract Cardiovascular History: Reports: High Cholesterol, Hypertension, Other (See Below) Other Cardiovascular History: chew an aspirin a day Respiratory History: Reports: Bronchitis, Recurrent, Pneumonia, Recurrent PHYSICAL DAMAGE APPRAISER History: Reports: , Other (See Below) Other PHYSICAL DAMAGE APPRAISER History: biopsy Musculoskeletal History: Reports: Other (See Below) Other Musculoskeletal History: rediculpathy Neurological History: Reports: Concussion Psychiatric History: Reports: Anxiety, Depression Endocrine/Metabolic History: Reports: Obesity/BMI 30+ Hematologic History: Reports: Blood Transfusion(s) Dermatologic History: Reports: Other (See Below) Other Dermatologic History: Skin rash to chest area - Infectious Disease History Infectious Disease History: Reports: Chicken Pox, Influenza, Measles, Rubella, Shingles - Past Surgical History HEENT Surgical History: Reports: Radial Keratotomy GI Surgical History: Reports: Appendectomy, Colonoscopy, Hernia, Inguinal Musculoskeletal Surgical History: Reports: Other (See Below) Other Musculoskeletal Surgeries/Procedures:: cortisone shots to shoulders Social & Family History - Caffeine Use Caffeine Use: Reports: Coffee, Soda Other Caffeine Use: 2cups/day ED ROS GENERAL - Review of Systems Review Of Systems: See Below Constitutional: Reports: No Symptoms HEENT: Reports: No Symptoms Cardiovascular: Reports: No Symptoms Endocrine: Reports: No Symptoms GI/Abdominal: Reports: No Symptoms Musculoskeletal: Reports: No Symptoms Skin: Reports: Bruising Neurological: Reports: No Symptoms ED EXAM, SKIN/RASH Exam: See Below Exam Limited By: No Limitations General Appearance: Alert, WD/WN, No Apparent Distress Eye Exam: Bilateral Eye: EOMI, PERRL Respiratory/Chest: No Respiratory Distress, Lungs Clear Cardiovascular: Normal Peripheral Pulses GI/Abdominal: Normal Bowel Sounds Location, Skin: Other (multiple superficial skin wounds. no active bleeding) Course - Vital Signs Last Recorded V/S: Last Vital Signs Temp 36.8 C 09/16/20 10:12 Pulse 94 09/16/20 10:12 Resp 18 09/16/20 10:12 BP 147/81 H 09/16/20 10:12 Pulse Ox 98 09/16/20 10:12 - Re-Assessments/Exams Free Text/Narrative Re-Assessment/Exam: 09/16/20 10:52 wound was cleaned with shur-clean. Skin was re-applied over the wound - steri-strips was used. no suture or glue. bacitracin and sterile dressing Departure - Departure Time of Disposition: 10:52 Disposition: Home, Self-Care 01 Condition: Good Clinical Impression: Minor skin laceration - Discharge Information *PRESCRIPTION DRUG MONITORING PROGRAM REVIEWED*: Not Applicable *COPY OF PRESCRIPTION DRUG MONITORING REPORT IN PATIENT BOBO: Not Applicable Referrals: PCP,None [Primary Care Provider] - Forms: ED Department Discharge Sepsis Event Note (ED) - Focused Exam Vital Signs: Vital Signs Temp Pulse Resp BP Pulse Ox 09/16/20 10:12 36.8 C 94 18 147/81 H 98 - Problem List & Annotations (1) Minor skin laceration SNOMED Code(s): 595909791 Code(s): [id number] - Status: Acute Priority: Low Current Visit: Yes - Problem List Review Problem List Initiated/Reviewed/Updated: Yes - Assessment/Plan Plan: - recommend to keep wound clean and dry - avoid getting the wound wet - leave steri-strips on for at least 7 days - follow up with your PCP in 5-10 days for wound check up - return to the ER for any concerns
== END 2020-09-16 11:08 | disposition home or self-care (01) ==
LOC: LB.ED 10:05
DX: S41.112A Laceration without foreign body of left upper arm, initial encounter (principal); S41.111A Laceration without foreign body of right upper arm, initial encounter; E78.00 Pure hypercholesterolemia, unspecified; I10 Essential (primary) hypertension; E66.9 Obesity, unspecified; Z79.82 Long term (current) use of aspirin; Z79.899 Other long term (current) drug therapy; Z88.0 Allergy status to penicillin; W01.0XXA Fall on same level from slipping, tripping and stumbling without subsequent striking against object, initial encounter
CPT/HCPCS: 99283

== ENCOUNTER 2021-10-24 19:28 | Emergency (ER) | payer MEDICARE ==
[2021-10-24] MEDS ORDERED: valACYclovir 500 MG Tab ONE (20:15)
[2021-10-24] MEDS ORDERED: predniSONE 10 MG Tab ONE ×2 (20:15)
[2021-10-24] MEDS ORDERED: valACYclovir 1,000 MG Tab ONE (20:15)
[2021-10-24 20:57] VITALS: BP 139/68; PULSE 74
== END 2021-10-24 20:35 | disposition home or self-care (01) ==
LOC: LB.ED 19:28
DX: B02.9 Zoster without complications (principal); E78.00 Pure hypercholesterolemia, unspecified; I10 Essential (primary) hypertension; E66.9 Obesity, unspecified; Z68.30 Body mass index [BMI] 30.0-30.9, adult; Z88.0 Allergy status to penicillin; Z79.899 Other long term (current) drug therapy
CPT/HCPCS: 99282; 99283; A9270-GY; J7512

== ENCOUNTER 2021-11-11 12:57 | Emergency (ER) | payer MEDICARE ==
[2021-11-11 13:30] VITALS: BP 124/53; PULSE 91
[2021-11-11] MEDS: predniSONE 1 MG Tab PO ONE (13:45)
== END 2021-11-11 14:00 | disposition home or self-care (01) ==
LOC: LB.ED 12:57
DX: R53.81 Other malaise (principal); I10 Essential (primary) hypertension; E66.9 Obesity, unspecified; Z68.30 Body mass index [BMI] 30.0-30.9, adult; Z88.0 Allergy status to penicillin; Z79.899 Other long term (current) drug therapy; Z79.82 Long term (current) use of aspirin; Z90.49 Acquired absence of other specified parts of digestive tract
CPT/HCPCS: 99283; A0425; A0429; J7512; 99281

== ENCOUNTER 2022-11-19 13:06 | Emergency (ER) | payer MEDICARE ==
[2022-11-19 13:40] VITALS: BP 149/92; PULSE 93
[2022-11-19] MEDS ORDERED: Lidocaine 2% with EPINEPHrine 1:100,000 20 ML MDV INJECT ONE (14:00)
== END 2022-11-19 14:25 | disposition home or self-care (01) ==
LOC: LB.ED 13:06
DX: S61.412A Laceration without foreign body of left hand, initial encounter (principal); E78.00 Pure hypercholesterolemia, unspecified; I10 Essential (primary) hypertension; E66.9 Obesity, unspecified; Z88.0 Allergy status to penicillin; Z79.82 Long term (current) use of aspirin; Z79.899 Other long term (current) drug therapy; Z68.30 Body mass index [BMI] 30.0-30.9, adult; W19.XXXA Unspecified fall, initial encounter
CPT/HCPCS: 12002; 73120-LT; 99283

== ENCOUNTER 2024-08-21 16:01 | Emergency (ER) | payer MEDICARE ==
[2024-08-21] MEDS: Aspirin 81 MG Tab.Chew PO ONE (16:30)
[2024-08-21] MEDS: Metoprolol Tartrate 25 MG Tab PO ONE (16:42)
[2024-08-21 16:47] LABS: HEMATOCRIT 43.3 % (37.0-47.0); HEMOGLOBIN 14.2 g/dL (11.5-16.5); MEAN CORPUSCULAR HEMOGLOBIN 28.5 pg (27.0-32.0); MEAN CORPUSCULAR HGB CONC 32.8 g/dL (31.0-35.0); MEAN PLATELET VOLUME 10.2 fL (6.0-10.0); RED BLOOD CELL COUNT 4.98 M/uL (3.80-5.80); RED CELL DISTRIBUTION WIDTH 14.3 % (11.0-16.0); WHITE BLOOD CELL COUNT,WBC 6.9 K/uL (4.0-11.0)
[2024-08-21 17:02] VITALS: BP 140/80; PULSE 107
[2024-08-21 17:10] LABS: ANION GAP 11.6 mmol/L (5.0-15.0); BUN/CREATININE RATIO 15.5 (6-25); CARBON DIOXIDE,CO2 29.1 mmol/L (21.0-32.0); CREATININE 1.16 mg/dL (0.55-1.02); EST CRCL DRUG DOSING (CG) 38.87 mL/min; MAGNESIUM 1.8 mg/dL (1.8-2.4); PHOSPHORUS 3.7 mg/dL (2.5-4.9); POTASSIUM,K 3.7 mmol/L (3.5-5.1)
== END 2024-08-21 17:25 | disposition home or self-care (01) ==
LOC: LB.ED 16:01
DX: R00.0 Tachycardia, unspecified (principal); N17.9 Acute kidney failure, unspecified; I10 Essential (primary) hypertension; E78.00 Pure hypercholesterolemia, unspecified; Z88.0 Allergy status to penicillin; Z79.82 Long term (current) use of aspirin; Z79.899 Other long term (current) drug therapy
CPT/HCPCS: 36415; 80048; 83735; 84100; 84484; 85027; 85379; 93005; 99285; A9270; 93010; 99284

== ENCOUNTER 2024-09-10 16:49 | Inpatient (IN) | payer MEDICARE ==
[2024-09-10] MEDS: Albuterol/Ipratropium 3.0-0.5 MG/3 ML Neb Soln NEB ONE (17:21)
[2024-09-10] MEDS: Acetaminophen 500 MG Tab PO ONE (17:33)
[2024-09-10] MEDS: guaiFENesin/Dextromethorphan 100-10 MG/5 ML Soln 10 ML Cup PO ONE (17:34)
[2024-09-10 17:40] LABS: BASOPHILS ABSOLUTE AUTO 0.05 K/uL (0.02-0.10); BASOPHILS PERCENT AUTO 0.7 % (0.0-0.5); EOSINOPHILS ABSOLUTE AUTO 0.17 K/uL (0.04-0.40); EOSINOPHILS PERCENT AUTO 2.2 % (1.0-5.0); HEMATOCRIT 43.4 % (37.0-47.0); HEMOGLOBIN 14.2 g/dL (11.5-16.5); LYMPHOCYTES ABSOLUTE AUTO 1.53 K/uL (1.50-4.00); LYMPHOCYTES PERCENT AUTO 20.2 % (20.0-40.0); MEAN CORPUSCULAR HEMOGLOBIN 28.3 pg (27.0-32.0); MEAN CORPUSCULAR HGB CONC 32.7 g/dL (31.0-35.0); MEAN CORPUSCULAR VOLUME 87 fL (76-96); MONOCYTES ABSOLUTE AUTO 0.68 K/uL (0.20-0.80); NEUTROPHILS ABSOLUTE AUTO 5.15 K/uL (2.00-7.50); NEUTROPHILS PERCENT AUTO 67.9 % (45.0-70.0); PLATELET COUNT,PLT 222 K/uL (150-500); RED BLOOD CELL COUNT 5.01 M/uL (3.80-5.80); RED CELL DISTRIBUTION WIDTH 14.3 % (11.0-16.0); WHITE BLOOD CELL COUNT,WBC 7.6 K/uL (4.0-11.0)
[2024-09-10] MEDS: predniSONE 10 MG Tab PO ONE (17:51)
[2024-09-10 17:56] LABS: A/G RATIO 1.2 (0.8-2.0); ALBUMIN 3.3 g/dL (3.4-5.0); BILIRUBIN TOTAL 0.3 mg/dL (0.0-1.0); BUN/CREATININE RATIO 17.5 (6-25); CALCIUM 8.5 mg/dL (8.5-10.1); CARBON DIOXIDE,CO2 29.3 mmol/L (21.0-32.0); CREATININE 0.8 mg/dL (0.55-1.02); EST CRCL DRUG DOSING (CG) 56.36 mL/min; POTASSIUM,K 4.3 mmol/L (3.5-5.1); PROTEIN TOTAL,TP 6.1 g/dL (6.4-8.2)
[2024-09-10] MEDS ORDERED: Sodium Chloride 0.9% 10 ML Syringe FLUSH PRN (18:24)
[2024-09-10] MEDS: Azithromycin 500 MG in Sodium Chloride 0.9% 250 ML IV ONE (19:23)
[2024-09-10] MEDS: Simvastatin 20 MG Tab PO SCH (21:30)
[2024-09-10] MEDS: ClonazePAM 0.5 MG Tab PO PRN (21:30)
[2024-09-10] MEDS: Aspirin 325 MG Tab.EC PO SCH (21:31)
[2024-09-11] MEDS: Benzonatate 100 MG Cap PO PRN (00:57)
[2024-09-11] MEDS: Albuterol 0.083% 2.5 MG/3 ML Neb Soln NEB PRN (01:01)
[2024-09-11] MEDS: Acetaminophen 325 MG Tab PO PRN (05:13)
[2024-09-11] MEDS: Pantoprazole 40 MG Tab.CR PO SCH (06:30)
[2024-09-11] MEDS ORDERED: Aspirin 325 MG Tab.EC PO SCH (08:00)
[2024-09-11] MEDS: guaiFENesin 600 MG Tab.ER PO SCH (08:14)
[2024-09-11] MEDS: Lisinopril 5 MG Tab PO SCH (08:14)
[2024-09-11] MEDS: Lactobacillus Acidophilus/Lactobacillus Sporogenes (Probiotic) Tab PO SCH (08:15)
[2024-09-11] MEDS: Metoprolol Tartrate 25 MG Tab PO SCH (08:15)
[2024-09-11] MEDS: predniSONE 10 MG Tab PO SCH (08:15)
[2024-09-11] MEDS ORDERED: Magnesium Hydroxide 400 MG/5 ML Susp 30 ML Cup PO PRN (10:47)
[2024-09-11] MEDS: Sennosides/Docusate Sodium 50-8.6 MG Tab PO SCH (10:59)
[2024-09-11] MEDS: predniSONE 20 MG Tab PO ONE (11:00)
[2024-09-11] MEDS: Formoterol/Mometasone 200-5 MCG 8.8 GM Inhaler INH SCH ×2 (11:47→19:59)
[2024-09-11] MEDS: Azithromycin 500 MG in Sodium Chloride 0.9% 250 ML IV SCH (17:21)
[2024-09-12] MEDS: predniSONE 20 MG Tab PO SCH (06:48)
[2024-09-12 11:15] VITALS: BP 133/67; PULSE 73
[2024-09-12] MEDS ORDERED: Sennosides/Docusate Sodium 50-8.6 MG Tab PO SCH (20:00)
== END 2024-09-12 11:23 | disposition home or self-care (01) | DRG 192 ==
LOC: LB.ED 16:49 → LB.MS 18:34 → OBSVTOIN 09-11 15:52
PROVIDERS: ADMIT Nurse Practitioner Family; ATTEND Physician Assistant
DX: J44.1 Chronic obstructive pulmonary disease with (acute) exacerbation (principal); F17.210 Nicotine dependence, cigarettes, uncomplicated; H26.9 Unspecified cataract; H54.7 Unspecified visual loss; E78.00 Pure hypercholesterolemia, unspecified; I10 Essential (primary) hypertension; K21.9 Gastro-esophageal reflux disease without esophagitis; M54.9 Dorsalgia, unspecified; G89.29 Other chronic pain; F41.9 Anxiety disorder, unspecified; F32.A Depression, unspecified; E66.9 Obesity, unspecified; Z68.29 Body mass index [BMI] 29.0-29.9, adult; Z90.49 Acquired absence of other specified parts of digestive tract; Z98.890 Other specified postprocedural states; Z79.82 Long term (current) use of aspirin; Z72.0 Tobacco use; Z79.899 Other long term (current) drug therapy; Z88.0 Allergy status to penicillin
CPT/HCPCS: 36415; 71045; 80053; 85025; 94640; 96365; 99222; 99232; 99238; 99285; A9270-GY; G0378; J0456; J7512

== ENCOUNTER 2025-03-22 12:00 | Emergency (ER) | payer MEDICARE ==
[2025-03-22 12:09] VITALS: BP 148/59; PULSE 96
== END 2025-03-22 12:23 | disposition home or self-care (01) ==
LOC: LB.ED 12:00
DX: K64.4 Residual hemorrhoidal skin tags (principal); I10 Essential (primary) hypertension; E78.00 Pure hypercholesterolemia, unspecified; J44.9 Chronic obstructive pulmonary disease, unspecified; K21.9 Gastro-esophageal reflux disease without esophagitis; F17.210 Nicotine dependence, cigarettes, uncomplicated; Z88.0 Allergy status to penicillin; Z79.82 Long term (current) use of aspirin; Z79.899 Other long term (current) drug therapy
CPT/HCPCS: 99283; 99284